=== PATIENT | female | born 1975 | race Caucasian/White ===

== ENCOUNTER 2023-01-20 22:00 | Emergency (ER) | payer MEDICAID ==
[~2023-01-20] VITALS: Ht 162.6 cm; Wt 83.0 kg
[2023-01-20 22:07] VITALS: O2SAT 98
[2023-01-20 23:26] LABS: CLARITY URINE CLOUDY (CLEAR); COLOR URINE YELLOW (YELLOW); GLUCOSE URINE NEGATIVE (NEGATIVE); KETONES URINE NEGATIVE (NEGATIVE); LEUKOCYTE ESTERASE URINE 2+ (NEGATIVE); NITRITE URINE NEGATIVE (NEGATIVE); OCCULT BLOOD URINE 2+ (NEGATIVE); PH URINE 5.5 (4.5-8.0); PROTEIN URINE NEGATIVE (NEGATIVE); SPECIFIC GRAVITY URINE 1.011 (1.005-1.030); UROBILINOGEN URINE 0.2 E.U./dL (0.2-1.0)
[2023-01-21 00:01] LABS: BACTERIA URINE TRACE; SQUAMOUS EPITHELIAL CELL URINE 1+ /lpf (RARE/1+); WBC URINE 25-50 /hpf (0-2)
[2023-01-21] MEDS ORDERED: CEPHALEXIN 250MG CAPSULE PO ONE (00:45)
[2023-01-21] MEDS ORDERED: IBUPROFEN 600MG TABLET PO ONE (00:45)
[2023-01-21] MEDS ORDERED: IBUP-2029 MT (00:48)
[2023-01-21] MEDS ORDERED: CEPH500C2 MT (00:48)
[2023-01-21 01:17] VITALS: BP 167/106
[2023-01-21 01:19] VITALS: PULSE 80; RESP 16; TEMP 98.7
== END 2023-01-21 01:20 | disposition home or self-care (01) ==
LOC: ER 22:00
DX: N39.0 Urinary tract infection, site not specified (principal); M25.512 Pain in left shoulder; I10 Essential (primary) hypertension; Z86.59 Personal history of other mental and behavioral disorders; W01.0XXA Fall on same level from slipping, tripping and stumbling without subsequent striking against object, initial encounter; Y93.89 Activity, other specified; Y92.89 Other specified places as the place of occurrence of the external cause; Y99.8 Other external cause status
CPT/HCPCS: 73030; 73502; 81003; 81025; 87077; 87186; 93005; 99285